=== PATIENT | male | born 1955 | race Caucasian/White ===

== ENCOUNTER 2016-08-19 19:43 | Emergency (ER) | payer OTHER ==
[~2016-08-19] VITALS: Ht 185.4 cm; Wt 104.5 kg
[~2016-08-19 19:43] MED LIST: ANTIVERT 25MG25 MG PO; NO HOME MEDICATIONS; PHENERGAN 25 TA25 MG PO; PRINZIDE 12.5 M1 TA1 PO; VALIUM 5MG T5 MG/TAB PO; ZESTORETIC 12.51 TA1 PO; ZESTRIL 20MG TA20 MG PO; ZOCOR 20MG20 MG PO; ZOFRAN 4MG T4 MG/TAB PO
[2016-08-19 19:46] VITALS: TEMP 98
[2016-08-19 21:50] VITALS: BP 164/87; PULSE 108
== END 2016-08-19 21:50 | disposition home or self-care (01) ==
LOC: COL.ER 19:43
DX: H43.12 Vitreous hemorrhage, left eye (principal); I10 Essential (primary) hypertension

== ENCOUNTER 2023-03-04 15:00 | Outpatient (RCR) | payer MEDICARE ==
[2023-02-28 15:18] VITALS: BP 129/79; PULSE 68; TEMP 98.6
--- NOTE | 2023-02-28 15:57 | NUR ---
Pt tolerated rabies vacc without issue. He was escorted out to ED entrance with belonings, free of complaints at time of discharge.
[~2023-03-04] VITALS: Ht 182.9 cm; Wt 113.0 kg
[~2023-03-04 15:00] MED LIST changes: +K2-4545 MCG PO; +NATURAL MAGNES200 MG PO; +NIASPAN 500MG500 MG PO; +PHARMASSURE CHE30 MG PO; +PRINIVIL20 MG PO; +TIMOPTIC 0.25%-5 OP; +TOPROL XL100 MG PO; +VITAMIN C500 MG PO; +VITAMIND3 5000 PO
[2023-03-04 15:06] VITALS: BP 144/78; PULSE 77; TEMP 99
== END 2023-03-10 | disposition home or self-care (01) ==
LOC: EUO
DX: Z23 Encounter for immunization (principal); Z20.3 Contact with and (suspected) exposure to rabies

== ENCOUNTER 2023-03-11 14:59 | Outpatient (RCR) | payer MEDICARE ==
[~2023-03-11] VITALS: Ht 182.9 cm; Wt 113.0 kg
[2023-03-11 15:28] VITALS: BP 133/74; PULSE 77; TEMP 97.6
== END 2023-04-10 | disposition home or self-care (01) ==
LOC: EUO
DX: Z20.3 Contact with and (suspected) exposure to rabies (principal)